=== PATIENT | female | born 1995 | race Two or more races ===

== ENCOUNTER 2018-12-09 21:55 | Emergency (ER) | payer OTHER ==
[2018-12-09 22:19] VITALS: BP 123/68
--- NOTE | 2018-12-10 00:09 | ER Document Report ---
ED Medical Screen (RME) - General Chief Complaint: Weakness Stated Complaint: WEAKNESS Time Seen by Provider: 12/10/18 00:02 Mode of Arrival: Ambulatory Information source: Patient Notes: Patient is a 23-year-old female presented to the emergency department multiple complaints today. Patient reports that she has been exhausted lately and has had muscle cramps. She states that she works long hours. She also reports intermittent vomiting, states she has vomited one time today and one time yesterday. She denies any diarrhea. She states that she feels very dizzy like the room is spinning around her. She also reports some dysuria and strong smelling urine. Patient denies any fevers. Exam: Patient alert, oriented, answering all questions. Vital signs are within normal limits. Heart sounds S1-S2 present with no ectopy noted. Lung sounds clear to auscultation bilaterally. I have greeted and performed a rapid initial assessment of this patient. A comprehensive ED assessment and evaluation of the patient, analysis of test results and completion of the medical decision making process will be conducted by additional ED providers. I have specifically instructed the patient or f amily members with the patient to immediately return to any nursing staff should anything change in the patient's condition or with their chief complaint. This medical record was dictated with voice recognizing software. There may be grammatical, syntax errors that are unintended. TRAVEL OUTSIDE OF THE [place] IN LAST 30 DAYS: No Physical Exam - Vital signs Vitals: Temp Pulse Resp BP Pulse Ox 97.9 F 84 18 123/68 98 12/09/18 22:19 12/09/18 22:19 12/09/18 22:12/09/18 22:19 12/09/18 22:19 Course - Vital Signs Vital signs: Temp Pulse Resp BP Pulse Ox 97.9 F 84 18 123/68 98 12/09/18 22:19 12/09/18 22:19 12/09/18 22:19 12/09/18 22:12/09/18 22:19
[2018-12-10 00:39] LABS: ABSOLUTE BASOPHILS # (AUTO) 0.1 10^3/uL (0.0-0.2); ABSOLUTE EOSINOPHILS # (AUTO) 0.4 10^3/uL (0.0-0.6); ABSOLUTE LYMPHOCYTES (AUTO) 3.6 10^3/uL (0.5-4.7); ABSOLUTE MONOCYTES (AUTO) 0.7 10^3/uL (0.1-1.4); ABSOLUTE NEUT (AUTO) 6.4 10^3/uL (1.7-8.2); BASOPHILS % (AUTO) 0.5 % (0-2); EOSINOPHILS % (AUTO) 3.4 % (0-6); HEMATOCRIT 40.9 % (36.0-47.0); HEMOGLOBIN 13.9 g/dL (12.0-15.5); LYMPHOCYTES % (AUTO) 32.5 % (13-45); MEAN CORPUSCULAR HEMOGLOBIN 30.9 pg (27.0-33.4); MEAN CORPUSCULAR VOLUME 91 fl (80-97); MONOCYTES % (AUTO) 6.1 % (3-13); PLATELET COUNT 298 10^3/uL (150-450); RED CELL DISTRIBUTION WIDTH 14.1 % (11.5-14.0); SEGMENTED NEUTROPHILS % (AUTO) 57.5 % (42-78); TOTAL CELLS COUNTED % (AUTO) 100 %; WHITE BLOOD COUNT 11.1 10^3/uL (4.0-10.5)
[2018-12-10 00:45] LABS: APPEARANCE,URINE CLEAR; BILIRUBIN,URINE NEGATIVE (NEGATIVE); COLOR,URINE YELLOW; GLUCOSE, URINE NEGATIVE (NEGATIVE); KETONES,URINE NEGATIVE (NEGATIVE); LEUKOCYTE ESTERASE,URINE TRACE (NEGATIVE); NITRITE,URINE NEGATIVE (NEGATIVE); PROTEIN,URINE NEGATIVE (NEGATIVE); URINE SPECIFIC GRAVITY 1.027; UROBILINOGEN,URINE NEGATIVE mg/dL (<2.0)
[2018-12-10 00:59] LABS: ALANINE AMINOTRANSFERASE 23 U/L (9-52); ALBUMIN 4.4 g/dL (3.5-5.0); ALKALINE PHOSPHATASE 77 U/L (38-126); ANION GAP 12 (5-19); ASPARTATE AMINO TRANSFERASE 21 U/L (14-36); BILIRUBIN,DIRECT 0.2 mg/dL (0.0-0.4); BILIRUBIN,TOTAL 0.3 mg/dL (0.2-1.3); BLOOD UREA NITROGEN 19 mg/dL (7-20); CALCIUM 9.7 mg/dL (8.4-10.2); CARBON DIOXIDE 23 mmol/L (22-30); CHLORIDE 109 mmol/L (98-107); GLUCOSE 88 mg/dL (75-110); POTASSIUM 4.1 mmol/L (3.6-5.0); SODIUM 143.5 mmol/L (137-145); TOTAL PROTEIN 7.7 g/dL (6.3-8.2)
[2018-12-10] MEDS ORDERED: NORMAL SALINE 1000 ML 1,000 ML IV ONE (01:29)
[2018-12-10] MEDS ORDERED: METOCLOPRAMIDE HCL INJ/PF 10 MG/2 ML SDV IV ONE (01:29)
[2018-12-10] MEDS ORDERED: ACETAMINOPHEN 325 MG TABLET PO ONE (01:34)
--- NOTE | 2018-12-10 01:34 | ER Document Report ---
ED General - General Chief Complaint: Weakness Stated Complaint: WEAKNESS Time Seen by Provider: 12/10/18 00:02 Mode of Arrival: Ambulatory Information source: Patient TRAVEL OUTSIDE OF THE [place] IN LAST 30 DAYS: No - HPI Patient complains to provider of: Patient complained of generalized weakness, headache, N/V. Onset: Other Onset/Duration: Gradual Quality of pain: Dull Severity: Mild Pain Level: 1 Associated symptoms: Headache, Nausea, Vomiting, Weakness, Other - Lower abdominal pain. Exacerbated by: Denies Relieved by: Denies Similar symptoms previously: No Recently seen / treated by doctor: No Past Medical History - General Information source: Patient - Social History Smoking Status: Never Smoker Family History: Reviewed & Not Pertinent Review of Systems - Review of Systems Constitutional: Weakness EENT: No symptoms reported Cardiovascular: No symptoms reported Respiratory: No symptoms reported Gastrointestinal: Abdominal pain, Nausea, Vomiting Genitourinary: Dysuria, Frequency, Other - Foul-smelling urine. Female Genitourinary: No symptoms reported Musculoskeletal: No symptoms reported Skin: No symptoms reported Hematologic/Lymphatic: No symptoms reported Neurological/Psychological: No symptoms reported -: Yes All other systems reviewed and negative Physical Exam - Vital signs Vitals: Temp Pulse Resp BP Pulse Ox 97.9 F 84 18 123/68 98 12/09/18 22:19 12/09/18 22:19 12/09/18 22:19 12/09/18 22:19 12/09/18 22:19 Interpretation: Normal - General General appearance: Appears well, Alert In distress: None - HEENT Head: Normocephalic, Atraumatic Eyes: Normal Pupils: PERRL - Respiratory Respiratory status: No respiratory distress Chest status: Nontender Breath sounds: Normal Chest palpation: Normal - Cardiovascular Rhythm: Regular Heart sounds: Normal auscultation Murmur: No - Abdominal Inspection: Normal Distension: No distension Bowel sounds: Normal Tenderness: Tender - Lower abdominal tenderness to palpation. Organomegaly: No organomegaly - Back Back: Normal, Nontender - Extremities General upper extremity: Normal inspection, Nontender, Normal color, Normal ROM, Normal temperature General lower extremity: Normal inspection, Nontender, Normal color, Normal ROM, Normal temperature, Normal weight bearing. No: Mahnaz's sign - Neurological Neuro grossly intact: Yes Cognition: Normal Orientation: AAOx4 [place] Coma Scale Eye Opening: Spontaneous [place] Coma Scale Verbal: Oriented [place] Coma Scale Motor: Obeys Commands [place] Coma Scale Total: 15 Speech: Normal Motor strength normal: LUE, RUE, LLE, RLE Sensory: Normal - Psychological Associated symptoms: Normal affect, Normal mood - Skin Skin Temperature: Warm Skin Moisture: Dry Skin Color: Normal Course - Re-evaluation Re-evalutation: 12/10/18 02:16 Patient refused further evaluation in the emergency room. She said she is here to get a work excuse. She wants to go home with a work excuse. She signed the left AGAINST MEDICAL ADVICE. I explained to her the risk involved and she verbalized understanding the risk. She left the ED in a stable medical conditio n with her significant other. I encouraged her to come back to the emergency room if she changes her mind I want to be fully evaluated. - Vital Signs Vital signs: Temp Pulse Resp BP Pulse Ox 97.9 F 84 18 123/68 98 12/09/18 22:19 12/09/18 22:19 12/09/18 22:19 12/09/18 22:19 12/09/18 22:19 - Laboratory Result Diagrams: 12/10/18 00:10 12/10/18 00:10 Laboratory results interpreted by me: 12/10/18 12/10/18 12/10/18 00:10 00:10 00:10 WBC 11.1 H RDW 14.1 H Chloride 109 H Ur Leukocyte Esterase TRACE H - Diagnostic Test Radiology reviewed: Reports reviewed - EKG Interpretation by Me EKG shows normal: Sinus rhythm Rate: Normal Rhythm: NSR When compared to previous EKG there are: Previous EKG unavailable Additional EKG results interpreted by me: 12/10/18 01:55 No STEMI. Discharge - Discharge Clinical Impression: Generalized weakness Abdominal pain Qualifiers: Abdominal location: lower abdomen, unspecified Qualified Code(s): R10.30 - Lower abdominal pain, unspecified UTI (urinary tract infection) Qualifiers: Urinary tract infection type: acute cystitis Hematuria presence: without hematuria Qualified Code(s): N30.00 - Acute cystitis without hematuria Nausea and vomiting Qualifiers: Vomiting type: unspecified Vomiting Intractability: non-intractable Qualified Code(s): R11.2 - Nausea with vomiting, unspecified Headache Qualifiers: Headache type: unspecified Headache chronicity pattern: unspecified pattern Intractability: not intractable Qualified Code(s): R51 - Headache Condition: Stable Disposition: AGAINST MEDICAL ADVICE Forms: Return to Work
[2018-12-10] MEDS ORDERED: CEFTRIAXONE 1 GM/D5W RTU 1 GM/50 ML RTUPB IV ONE (02:00)
[2018-12-10 02:05] LABS: INTERNATIONAL RATION (INR) 0.94; PROTHROMBIN TIME 12.6 SEC (11.4-15.4)
--- NOTE | 2018-12-10 19:04 | EKG REPORT ---
SEVERITY:- NORMAL ECG - SINUS RHYTHM : Confirmed by: Amber Zepeda MD 10-Dec-2018 19:04:01
== END 2018-12-10 02:00 | disposition left against medical advice (07) ==
LOC: ER 21:55
DX: N30.00 Acute cystitis without hematuria (principal); R51 Headache; R53.1 Weakness; R11.2 Nausea with vomiting, unspecified; R10.30 Lower abdominal pain, unspecified
CPT/HCPCS: 36415; 80053; 81001; 81025; 85025; 85610; 85730; 93005; 93010; 99281

== ENCOUNTER → 2019-08-04 | Outpatient (CLI) | payer BC ==
[2019-08-04 09:55] LABS: ABSOLUTE EOSINOPHILS # (AUTO) 0.1 10^3/uL (0.0-0.6); ABSOLUTE LYMPHOCYTES (AUTO) 0.9 10^3/uL (0.5-4.7); ABSOLUTE MONOCYTES (AUTO) 0.7 10^3/uL (0.1-1.4); ABSOLUTE NEUT (AUTO) 2.8 10^3/uL (1.7-8.2); BASOPHILS % (AUTO) 0.5 % (0-2); EOSINOPHILS % (AUTO) 1.8 % (0-6); HEMOGLOBIN 13.9 g/dL (12.0-15.5); LYMPHOCYTES % (AUTO) 20.8 % (13-45); MEAN CORPUSCULAR HEMOGLOBIN 31.6 pg (27.0-33.4); MEAN CORPUSCULAR HGB CONC 34.7 g/dL (32.0-36.0); MEAN CORPUSCULAR VOLUME 91 fl (80-97); MONOCYTES % (AUTO) 15.6 % (3-13); PLATELET COUNT 224 10^3/uL (150-450); RED CELL DISTRIBUTION WIDTH 13.7 % (11.5-14.0); SEGMENTED NEUTROPHILS % (AUTO) 61.3 % (42-78); TOTAL CELLS COUNTED % (AUTO) 100 %; WHITE BLOOD COUNT 4.6 10^3/uL (4.0-10.5)
[2019-08-04 10:25] LABS: FREE T4 (FREE THYROXINE) 0.83 ng/dL (0.78-2.19)
[2019-08-04 10:35] LABS: ALKALINE PHOSPHATASE 81 U/L (38-126); ANION GAP 7 (5-19); ASPARTATE AMINO TRANSFERASE 21 U/L (14-36); BILIRUBIN,TOTAL 0.3 mg/dL (0.2-1.3); BLOOD UREA NITROGEN 15 mg/dL (7-20); CALCIUM 8.8 mg/dL (8.4-10.2); CARBON DIOXIDE 25 mmol/L (22-30); CHLORIDE 107 mmol/L (98-107); CHOLESTEROL 134.53 mg/dL (0-200); GLUCOSE 94 mg/dL (75-110); POTASSIUM 4.1 mmol/L (3.6-5.0); TOTAL PROTEIN 7.3 g/dL (6.3-8.2); TRIGLYCERIDES 83 mg/dL (<150)
[2019-08-04 10:38] LABS: THYROID STIMULATING HORMONE 1.4 uIU/mL (0.47-4.68)
[2019-08-04 10:45] LABS: DIRECT LDL 83 mg/dL (<100)
== END ==
LOC: OD 09:04
PROVIDERS: ATTEND Psychiatry & Neurology Psychiatry
DX: F31.81 Bipolar II disorder (principal); Z79.899 Other long term (current) drug therapy
CPT/HCPCS: 36415; 80048; 80061; 80076; 83036; 84439; 84443; 85025